=== PATIENT | male | born 1955 | race Caucasian/White ===

== ENCOUNTER 2017-04-10 11:47 | Emergency (ER) | payer OTHER ==
--- NOTE | ~2017-04-10 | CR72 ---
[facility] A Service of [facility] RADIOLOGY TEXT RESULTS PATIENT: MARK POOLE LOCATION: SED : 51 UNIT #: [id number] AGE: [address]: Lucio Montilla MD SEX: M ORDER DR: [id number] [address] [id number] [id number] E MR#: [id number] Acc #: [id number] NAME: MARK POOLE : 1955 SEX: M STUDY DATE/TIME: 04/10/2017 12:36 UNIT: SED ROOM: STUDY DESCRIPTION: CR Chest Single View Portable Attending Physician: Lucio Montilla M.D. Ordering Physician: Lucio Montilla M.D. Primary Care Physician: Lenny Buenrostro M.D. MEDICAL IMAGING REPORT This report is preliminary unless electronic signature is present. EXAM Frontal chest, 04/10/2017. INDICATIONS 61-year-old male with chest pain since this morning. Irregular heartbeat. Hypertension. TECHNIQUE Frontal chest compared with 07/27/2006. FINDINGS Cardiac silhouette is within normal limits. Vascularity unremarkable. Lungs are clear. No pneumothorax. Anterior cervical fusion changes present. IMPRESSION 1. Negative frontal chest. Dictated by... Vitaly Ceballos M.D. THIS IS AN ELECTRONICALLY VERIFIED REPORT Vitaly Ceballos M.D. at 04/10/2017 5:07 PM Oliver TD: 04/10/2017 17:02 JOB #: [id number] MEDICAL IMAGING REPORT Page 1 of 1
--- NOTE | ~2017-04-10 | EKG ---
PATIENT: MARK POOLE UNIT #: [id number] Ventricular Rate: 91 BPM Atrial Rate: 91 BPM P-R Interval: 130 ms QRS Duration: 84 ms Q-T Interval: 350 ms QTC Calculation(Bezet): 430 ms P [place]: 82 degrees Calculated R [place]: 78 degrees Calculated T [place]: 58 degrees Diagnosis Line: Normal sinus rhythm Diagnosis Line: Possible Left atrial enlargement Diagnosis Line: Borderline ECG Diagnosis Line: No previous ECGs available Diagnosis Line: Confirmed by ORA BENSON MD ([id number]) on Diagnosis Line: 04/14/2017 11:02:37 AM INTERPRETING MD: KELLEY PENDLETON
[~2017-04-10 11:47] MED LIST: FLEXERIL; LORTAB 7.5-5001 TAB
[2017-04-10 12:41] LABS: BASOPHIL# 0.1 X10e3 (0-0.3); BASOPHIL% 1.2 % (0-2.5); EOSINOPHIL# 0.1 X10e3 (0-0.7); EOSINOPHIL% 1.1 % (0.0-7.0); HEMATOCRIT 40.4 % (38.0-50.0); HEMOGLOBIN 13.8 gm/dL (13.0-16.0); LYMPHOCYTE# 1.8 X10e3 (1.0-3.5); LYMPHOCYTE% 23.1 % (17.0-45.0); MEAN CELL VOLUME 92.7 FL (83-96); MEAN CORPUSCULAR HEMOGLOBIN 31.6 PG (28-34); MEAN CORPUSCULAR HGB CONC 34.1 g/dL (30-36); MEAN PLATELET VOLUME 8.2 FL (6.5-11.5); MONOCYTE# 0.5 X10e3 (0-1.0); MONOCYTE% 5.8 % (3.0-12.0); NEUTROPHIL# 5.5 X10e3 (1.5-7.1); NEUTROPHIL% 68.8 % (40-75); PLATELET COUNT 311 X10e3 (140-420); RED BLOOD COUNT 4.36 X10e (3.90-5.60); RED CELL DISTRIBUTION WIDTH 12.7 % (11.0-15.5)
[2017-04-10 12:44] LABS: DIFF IND NO
[2017-04-10 12:53] LABS: CALCIUM SERUM 9.1 mg/dL (8.4-10.2); GLOM FILT RATE Estimated 79.8 mL/min (>60); POTASSIUM 3.9 mmol/L (3.5-5.1)
[2017-04-10 13:37] LABS: POC - CKMB 1.9 ng/mL (0.0-7.9)
[2017-04-10 13:38] LABS: POC - TROPONIN <0.05 ng/mL (<=0.05)
== END 2017-04-10 14:19 | disposition home or self-care (01) ==
LOC: SED 11:47
PROVIDERS: Emergency Medicine
DX: M25.511 Pain in right shoulder (principal); R11.2 Nausea with vomiting, unspecified
CPT/HCPCS: 36415; 71010; 80048; 82553; 84484; 85025; 93005; 99284